=== PATIENT | male | born 1940 | race Caucasian/White ===

== ENCOUNTER → 2016-10-08 | Outpatient (CLI) | payer BC ==
[2016-10-08 12:08] LABS: BASO % 0.2 %; BASO ABS # 0.02 K/uL (0-0.2); COMPLETE YES; EOS % 6.5 %; HEMATOCRIT 39.1 % (42-52); IG% 0.4 %; LYMPH % 17.9 %; LYMPH ABS # 1.52 K/uL (1.2-3.4); MEAN CELL VOLUME 89.1 fL (80-100); MEAN CORPUSCULAR HEMOGLOBIN 29.4 pg (25-34); MEAN PLATELET VOLUME 10.6 fL (7.4-10.4); MONO % 8.1 %; NEUT % 66.9 %; PLATELET COUNT 216 K/uL (130-400); RED BLOOD COUNT 4.39 M/uL (4.7-6.1)
[2016-10-08 12:49] LABS: ALT/SGPT 31 U/L (12-78); AST/SGOT 12 U/L (15-37); BLOOD UREA NITROGEN 24 mg/dl (7-18); BUN/CREATININE RATIO 15.8 (10-20); CALCIUM 9.6 mg/dl (8.5-10.1); CARBON DIOXIDE 28 mmol/L (21-32); CHLORIDE 104 mmol/L (98-107); CHOLESTEROL 132 mg/dl (0-200); GLUCOSE 145 mg/dl (70-99); POTASSIUM 4.2 mmol/L (3.5-5.1); SODIUM 142 mmol/L (136-145); TRIGLYCERIDES 67 mg/dl (0-150); VERY LOW DENSITY LIPOPROT CALC 13 mg/dl
[2016-10-08 12:57] LABS: ALB/GLOB RATIO 1.1 (0.9-2); ALKALINE PHOSPHATASE 54 U/L (45-117); CHOLESTEROL/HDL RATIO 2.2; FERRITIN 296.6 ng/ml (8.0-388.0); HDL CHOLESTEROL 60 mg/dl; LDL CHOLESTEROL CALCULATED 59 mg/dl; TOTAL IRON BINDING CAPACITY 279 mcg/dl (250-450)
--- NOTE | 2016-10-12 09:48 | CODING QUERY MEDICAL NECESSITY ---
SUPPORTING DIAGNOSIS NEEDED Dr. Mejia, A supporting diagnosis is required for the test/procedure performed on this patient in order for us to be reimbursed by the patient's insurance. Please provide a supporting diagnosis for the following test/procedure listed below next to the test name along with your signature. *If there is no additional diagnosis for this patient that would support the following test/procedure please document that below next to the test/procedure. Test(s)/Procedure(s) that require a supporting diagnosis: * ([id number]) B12 VITAMIN LEVEL DIAGNOSIS: * ([id number]) FOLATE LEVEL DIAGNOSIS: DATE OF SERVICE: 10/08/16 Provider Signature: Date: Thank you Francesco Hicks [facility] Information Management Once completed, please kindly fax back to [phone] For questions please call [phone]
== END | disposition home or self-care (01) ==
LOC: C.LAB 10:38
PROVIDERS: ATTEND Internal Medicine
DX: D64.9 Anemia, unspecified (principal)

== ENCOUNTER → 2016-10-12 | Outpatient (CLI) | payer BC ==
[2016-10-12 13:37] LABS: BASO % 0.6 %; BASO ABS # 0.04 K/uL (0-0.2); COMPLETE YES; EOS % 7.6 %; HEMATOCRIT 37.2 % (42-52); IG% 0.3 %; LYMPH % 18.6 %; LYMPH ABS # 1.32 K/uL (1.2-3.4); MEAN CELL VOLUME 88.2 fL (80-100); MEAN CORPUSCULAR HEMOGLOBIN 29.6 pg (25-34); MEAN CORPUSCULAR HGB CONC 33.6 g/dl (32-36); MEAN PLATELET VOLUME 10.3 fL (7.4-10.4); MONO % 9.6 %; NEUT % 63.3 %; PLATELET COUNT 196 K/uL (130-400); RED BLOOD COUNT 4.22 M/uL (4.7-6.1)
[2016-10-12 13:59] LABS: ESTIMATED AVERAGE GLUCOSE 148 mg/dl; HA1C FLAG Normal (Normal)
[2016-10-12 14:01] LABS: ALT/SGPT 29 U/L (12-78); AST/SGOT 16 U/L (15-37); BLOOD UREA NITROGEN 23 mg/dl (7-18); CALCIUM 9.6 mg/dl (8.5-10.1); CARBON DIOXIDE 32 mmol/L (21-32); CHLORIDE 106 mmol/L (98-107); GLUCOSE 167 mg/dl (70-99); POTASSIUM 4.3 mmol/L (3.5-5.1); SODIUM 144 mmol/L (136-145)
[2016-10-12 14:04] LABS: ALB/GLOB RATIO 1.1 (0.9-2); ALKALINE PHOSPHATASE 56 U/L (45-117)
[2016-10-12 14:25] LABS: RATIO 6.9 mcg/mg (0-30.0)
== END | disposition home or self-care (01) ==
LOC: C.LABBC 10:55
PROVIDERS: ATTEND Internal Medicine
DX: E11.9 Type 2 diabetes mellitus without complications (principal)

== ENCOUNTER → 2017-03-28 | Outpatient (CLI) | payer BC ==
[2017-03-28 12:13] LABS: BASO % 0.2 %; BASO ABS # 0.01 K/uL (0-0.2); COMPLETE YES; EOS % 5.3 %; HEMATOCRIT 38.4 % (42-52); IG% 0.3 %; LYMPH % 20.6 %; LYMPH ABS # 1.24 K/uL (1.2-3.4); MEAN CELL VOLUME 89.7 fL (80-100); MEAN CORPUSCULAR HEMOGLOBIN 29.7 pg (25-34); MEAN CORPUSCULAR HGB CONC 33.1 g/dl (32-36); MEAN PLATELET VOLUME 10.1 fL (7.4-10.4); MONO % 9.3 %; NEUT % 64.3 %; PLATELET COUNT 178 K/uL (130-400); RED BLOOD COUNT 4.28 M/uL (4.7-6.1); WHITE BLOOD COUNT 6.03 K/uL (4.8-10.8)
[2017-03-28 12:25] LABS: ESTIMATED AVERAGE GLUCOSE 148 mg/dl; HA1C FLAG Normal (Normal)
[2017-03-28 12:35] LABS: ALT/SGPT 23 U/L (12-78); BLOOD UREA NITROGEN 23 mg/dl (7-18); BUN/CREATININE RATIO 16.4 (10-20); CALCIUM 9.9 mg/dl (8.5-10.1); CARBON DIOXIDE 30 mmol/L (21-32); CHLORIDE 108 mmol/L (98-107); CHOLESTEROL 131 mg/dl (0-200); GLUCOSE 102 mg/dl (70-99); POTASSIUM 4.3 mmol/L (3.5-5.1); SODIUM 142 mmol/L (136-145)
[2017-03-28 12:38] LABS: ALB/GLOB RATIO 1.1 (0.9-2); ALKALINE PHOSPHATASE 49 U/L (45-117); AST/SGOT 14 U/L (15-37); CHOLESTEROL/HDL RATIO 2.3; HDL CHOLESTEROL 56 mg/dl; LDL CHOLESTEROL CALCULATED 66 mg/dl; TRIGLYCERIDES 46 mg/dl (0-150); VERY LOW DENSITY LIPOPROT CALC 9 mg/dl
--- NOTE | 2017-04-03 06:47 | CODING QUERY MEDICAL NECESSITY ---
CQSUPPORTING DIAGNOSIS NEEDED A supporting diagnosis is required for the test/procedure performed on this patient in order for us to be reimbursed by the patient's insurance. Please provide a supporting diagnosis for the following test/procedure listed below next to the test name along with your signature. *If there is no additional diagnosis for this patient that would support the following test/procedure please document that below next to the test/procedure. Test(s)/Procedure(s) that require a supporting diagnosis: ELY 03/28/17 GLYCATED HEMOGLOBIN TEST Provider Signature: Date: Thank you Gaby Stephen Health Information Management Once completed, please kindly fax back to [phone] For questions please call [phone]
== END | disposition home or self-care (01) ==
LOC: C.LAB 10:11
PROVIDERS: ATTEND Internal Medicine
DX: E55.9 Vitamin D deficiency, unspecified (principal); E11.9 Type 2 diabetes mellitus without complications

== ENCOUNTER → 2017-10-08 | Outpatient (CLI) | payer BC ==
[2017-10-08 10:24] LABS: BASO % 0.3 %; BASO ABS # 0.02 K/uL (0-0.2); EOS % 4.8 %; EOS ABS # 0.38 K/uL (0-0.5); HEMATOCRIT 39.6 % (42-52); HEMOGLOBIN 13.4 g/dL (14.0-18.0); IG# 0.01 K/uL (0.00-0.02); LYMPH % 16.1 %; LYMPH ABS # 1.26 K/uL (1.2-3.4); MEAN CELL VOLUME 89.2 fL (80-100); MEAN CORPUSCULAR HEMOGLOBIN 30.2 pg (25-34); MEAN CORPUSCULAR HGB CONC 33.8 g/dl (32-36); MEAN PLATELET VOLUME 10.2 fL (7.4-10.4); MONO % 8.5 %; MONO ABS # 0.67 K/uL (0.11-0.59); NEUT % 70.2 %; PLATELET COUNT 194 K/uL (130-400); RED CELL DISTRIBUTION WIDTH CV 12.7 % (11.5-14.5); RED CELL DISTRIBUTION WIDTH SD 41.2 fL (36.4-46.3); WHITE BLOOD COUNT 7.84 K/uL (4.8-10.8)
[2017-10-08 10:56] LABS: ALBUMIN 3.8 gm/dl (3.4-5.0); ALT/SGPT 18 U/L (12-78); AST/SGOT 13 U/L (15-37); BLOOD UREA NITROGEN 29 mg/dl (7-18); CALCIUM 9.6 mg/dl (8.5-10.1); CARBON DIOXIDE 28 mmol/L (21-32); CHOLESTEROL 124 mg/dl (0-200); CREATININE 1.37 mg/dl (0.60-1.40); GLUCOSE 115 mg/dl (70-99); POTASSIUM 4.3 mmol/L (3.5-5.1); SODIUM 139 mmol/L (136-145)
[2017-10-08 11:08] LABS: ALKALINE PHOSPHATASE 55 U/L (45-117); LDL CHOLESTEROL CALCULATED 55 mg/dl; TOTAL PROTEIN 7.6 gm/dl (6.4-8.2)
[2017-10-08 11:45] LABS: HEMOGLOBIN A1C 6.4 % (4.5-5.6)
== END | disposition home or self-care (01) ==
LOC: C.LAB 09:27
PROVIDERS: ATTEND Internal Medicine
DX: E11.29 Type 2 diabetes mellitus with other diabetic kidney complication (principal)

== ENCOUNTER 2019-03-18 05:35 | Inpatient (IN) ==
--- NOTE | 2019-03-04 16:30 | PAT Medication Instructions ---
Medication Instructions Date of Service March 04, 2019 Home Medications glimepiride 4 mg PO QAM metformin 500 mg PO QAM simvastatin 20 mg PO QAM sitagliptin [Januvia] 100 mg PO QAM aspirin [Aspirin Low Dose] 81 mg PO QAM cholecalciferol (vitamin D3) [Vitamin D3] 1,000 unit PO QAM ASK your surgeon for instructions aspirin [Aspirin Low Dose] 81 mg PO QAM DO NOT take the morning of surgery glimepiride 4 mg PO QAM metformin 500 mg PO QAM sitagliptin [Januvia] 100 mg PO QAM cholecalciferol (vitamin D3) [Vitamin D3] 1,000 unit PO QAM Take morning of surgery With a small sip of water, OTHERWISE NOTHING TO EAT OR DRINK AFTER MIDNIGHT: simvastatin 20 mg PO QAM Other Notes If you have any questions please call us at [phone] or [phone] or [phone] or [phone]
--- NOTE | 2019-03-05 10:42 | Anesthesiology Consultation ---
Date of Service March 05, 2019 Assessment & Plan (1) Encounter for pre-operative examination: - No previous anesthesia records. - Possible difficult intubation due to decreased ROM of neck. - EKG sent to PCP for review for possible new findings. Dr. Mejia ordered a stress test which was normal. Per provider note dated 03/16 in [facility], patient is "okay for surgery". Chart Review Chart Review: Acceptable Risk for Surgery and Patient seen in Pre Admission Testing Consults Requested none Teaching & Discussion Pre-Anesthesia Teaching/Discussion Notes: Instructed NPO after midnight before surgery, except medications with 15 cc of water. Medication instructions provided according to the PAT guidelines. History Surgery Operation Date: 03/18/19 07:30 Proposed Procedures p Left Carotid Endarterectomy - Panchito Cornejo MD Height/Weight Height: 5 ft 7 in Weight: 66.5 kg Allergies Allergy/AdvReac Type Severity Reaction Status Date / Time No Known Allergies Allergy Verified 03/02/19 11:44 Medications Home Medications Medication Instructions Recorded Confirmed Last Taken glimepiride 4 mg PO QAM 12/25/18 03/02/19 Unknown simvastatin 20 mg PO QAM 12/25/18 03/02/19 Unknown sitagliptin [Januvia] 100 mg PO QAM 12/25/18 03/02/19 Unknown aspirin [Aspirin Low Dose] 81 mg PO QAM 03/02/19 03/02/19 Unknown cholecalciferol (vitamin D3) 1,000 unit PO QAM 03/02/19 03/02/19 Unknown [Vitamin D3] metformin 500 mg tablet See Rx Instructions .ROUTE 03/11/19 Unknown .COMPLEX #90 tablet Past Medical History Medical History Arthritis (Acute) Carotid artery narrowing (Acute) Diabetes mellitus (Acute) History of skin cancer (Acute) NOSE AND EAR - LEFT Hyperlipidemia (Acute) Vitamin D deficiency (Acute) Nodule of left lung Exercise / Class Metabolic Activity II 4-5 Yardwork/Stairs/Walk up hill (Able to climb FOS. Takes care of stein bushes and yard. Denies CP or SOB. ) Past Family History Family History Father Diabetes Brother Diabetes Sister Diabetes Past Surgical History Surgical History Hx of bilateral cataract extraction (Acute) Past Anesthesia History No Hx of Anesthesia Complications and No Family Hx of Anesthesia Complications History of PONV No Hx of PONV and No Hx of Motion Sickness Social History Smoking Status: Former smoker Do You Dip or Chew Tobacco: No Smoking End Date: 20 Hx Alcohol Use: Yes Alcohol type: beer alcohol intake frequency: a few times a week Hx Substance Use: No Review of Systems Patient denies chest pain, shortness of breath, dyspnea on exertion, reflux, cough, wheezing, palpitations. +Joint Pain (Neck) Physical Exam Vital Signs BP: 142/62 P: 53 R: 18 T: 97.5 SPO2: 98% on RA ENMT Mouth: + dentures (Full upper plate) Thyromental Distance: < 3.5 Finger Breadths (3) Mallampati Class: II Neck normal visual inspection, trachea midline and + limited neck extension Respiratory normal respiratory effort Auscultation: lungs clear to auscultation bilaterally Cardiovascular Rate/Rhythm: regular rhythm and + bradycardic Heart Sounds: + murmur (3/6 systolic) Vessels: + carotid bruit (bilateral) Neurologic moves all extremities Psychiatric Orientation: alert and oriented x 3 Testing Laboratory Results 03/05/19 10:58 03/05/19 10:58 PT 11.1 Seconds (9.0-12.0) 03/05/19 10:58 INR 1.1 (0.9-1.1) 03/05/19 10:58 APTT 32.2 Seconds (21.0-31.0) H 03/05/19 10:58 Blood Type A Negative 03/05/19 10:58 Antibody Screen NEGATIVE 03/05/19 10:58 Laboratory Tests 10/14/18 09:22 Hemoglobin A1c 6.6 H Electrocardiogram Date: 03/05/19 Sinus bradycardia with 1st degree AV block @ 51bpm Left anterior fascicular block Minimal voltage criteria for LVH, may be normal variant Chest X-Ray Date: 03/05/19 Findings: + NAD FINDINGS: There is no pneumothorax or pleural effusion. There is no consolid ation or evidence for pulmonary edema. A small metallic density within the anterior left chest wall within the subcutaneous tissues is noted. Cardiac size is normal. Mediastinal contours are normal. IMPRESSION: No acute cardiopulmonary findings. Stress Test Date: 03/13/19 Resting EF: 55-60% Normal stress echocardiogram at 8 METS and a peak heart rate of 92% predicted maximum. No exercise-induced chest pain. No EKG changes. Baseline echocardiogram notes normal left ventricular systolic function without wall motion abnormalities. Other Testing CT angio neck with con 12/25/18 FINDINGS: Extensive mixed plaque formation of the thoracic aortic arch with suggestion of ulcerative plaque about the aortic isthmus. Calcified plaque at the origin of the left subclavian artery results in approximately 50% stenosis. The right subclavian artery appears patent. Extensive mixed plaque formation is also noted at the origin of the innominate and left common carotid arteries without high-grade stenosis. Moderate mixed plaque formation is noted about the distal portions of the bilateral common carotid arteries without high-grade stenosis. [id number] mixed plaque formation of the right carotid bulb causes less than 50% luminal narrowing. Severe mixed plaque formation of the left carotid bulb results in 90% luminal narrowing of the proximal left ICA (image 248 series 4). Moderate calcified plaque about the petrous, cavernous and supraclinoid segments of the internal carotid arteries without definite high-grade stenosis. Calcified plaque is noted at the origin of the bilateral vertebral arteries without high-grade stenosis. The right vertebral artery is dominant. Mild luminal narrowing about the V2 segment right vertebral artery at the level of C5-C6 secondary to uncovertebral spurring and facet arthropathy. The basilar artery appears normal and is patent. Moderate emphysema. No pneumothorax. Indeterminate 4 x 3 mm solid nodule of the apical posterior segment left upper lobe. No adenopathy. Soft tissues are unrem arkable. Mastoid air cells are clear. Mild mucosal thickening of the paranasal sinuses. Multilevel degenerative changes of the spine. IMPRESSION: 1. Severe mixed plaque formation of the left carotid bulb and proximal left ICA results in 90% luminal narrowing of the proximal left ICA. 2. Moderate mixed plaque formation of the right carotid bulb and proximal right ICA results in less than 50% luminal narrowing. 3. No aneurysm, dissection or proximal branch occlusion. 4. 4 x 3 mm solid nodule of the apical posterior segment left upper lobe. Follow-up guidelines provided below. 5. Emphysema.
--- NOTE | 2019-03-05 11:34 | XRay Report ---
XR chest Pre-admission PA/Lat CLINICAL HISTORY: Preoperative evaluation. COMPARISON STUDY: No previous studies for comparison. FINDINGS: There is no pneumothorax or pleural effusion. There is no consolidation or evidence for pul monary edema. A small metallic density within the anterior left chest wall within the subcutaneous ti ssues is noted. Cardiac size is normal. Mediastinal contours are normal. IMPRESSION: No acute cardiopulmonary findings. Electronically signed by: Melvin Martinez M.D. 03/05/2019 11:33 AM
[2019-03-05 12:39] LABS: Basophils # (auto) 0.02 K/uL (0-0.2); Basophils % (auto) 0.3 %; Eosinophils # (auto) 0.32 K/uL (0-0.5); Eosinophils % (auto) 4.6 %; Hemoglobin 12.8 g/dL (14.0-18.0); Immature Granulocytes # (auto) 0.02 K/uL (0.00-0.02); Immature Granulocytes % (auto) 0.3 %; Lymphocytes # (auto) 1.32 K/uL (1.2-3.4); Lymphocytes % (auto) 18.8 %; Mean Corpuscular Hgb Conc 32.8 g/dL (32-36); Mean Corpuscular Volume 90.7 fL (80-100); Mean Platelet Volume 10.4 fL (7.4-10.4); Monocytes # (auto) 0.71 K/uL (0.11-0.59); Monocytes % (auto) 10.1 %; Neutrophils # (auto) 4.64 K/uL (1.4-6.5); Neutrophils % (auto) 65.9 %; Platelet Count 178 K/uL (130-400); RDW Standard Deviation 42.7 fL (36.4-46.3); White Blood Count 7.03 K/uL (4.8-10.8)
[2019-03-05 12:48] LABS: INR 1.1 (0.9-1.1); Partial Thromboplastin Ratio 1.2; Partial Thromboplastin Time 32.2 Seconds (21.0-31.0); Prothrombin Time 11.1 Seconds (9.0-12.0)
[2019-03-05 17:22] LABS: BUN Creatinine Ratio 16.6 (10-20); Calcium 9.5 mg/dl (8.5-10.1); Creatinine Clr Calc Pharmacy 31.1 ml/min; Est GFR (African American) 41.1; Est GFR (Non-African American) 35.5; Potassium 4.3 mmol/L (3.5-5.1)
[2019-03-18] MEDS ORDERED: CEFAZOLIN 1000MG 1,000 MG/7.5 ML SYR IV SCH (06:00)
[2019-03-18] MEDS ORDERED: SODIUM CHLORIDE 0.9% 1000ML IV SCH (06:00)
[2019-03-18] MEDS ORDERED: LR 15ML/HR IV SCH (06:00)
--- NOTE | 2019-03-18 06:24 | History & Physical Report ---
Date of Service March 18, 2019 Assessment & Plan (1) Stenosis of left internal carotid artery: Patient admitted for a left CEA. I have discussed the risks options and benefits of the procedure with the patient. The patient understands the risks options and benefits and agrees to the procedure. History of Present Illness Primary Care Provider: Tony Mejia MD Mr Traore was seen in November due to left internal carotid artery stenosis noted on an ultrasound. The ultrasound was initially performed due to his primary provider auscultating a left carotid bruit which prompted the order for ultrasound. The patient denies any symptoms, specifically of cerebrovascular insufficiency or amaurosis. He denies any unilateral extremity weakness, numbness or tingling, difficulty speaking or swallowing, facial droop, unilateral headaches, lightheadedness or other concerns. He denies any chest pain, shortness of breath, chest pain with activity. His CTA neck demonstrates over 90% stenosis of his left internal carotid artery. Of note, it also demonstrates a 4 x 3 mm left upper lobe lung nodule and also demonstrates some significant plaque formation in the thoracic aortic arch and a possible ulcerative plaque. Allergies Allergy/AdvReac Type Severity Reaction Status Date / Time No Known Allergies Allergy Verified 03/18/19 06:06 Home Medications Home Medications Medication Instructions Recorded Confirmed Type glimepiride 4 mg PO QAM 12/25/18 03/18/19 History simvastatin 20 mg PO QAM 12/25/18 03/18/19 History sitagliptin [Januvia] 100 mg PO QAM 12/25/18 03/18/19 History aspirin [Aspirin Low Dose] 81 mg PO QAM 03/02/19 03/18/19 History cholecalciferol (vitamin D3) 1,000 unit PO QAM 03/02/19 03/18/19 History [Vitamin D3] metformin 500 mg tablet See Rx Instructions .ROUTE 03/11/19 03/18/19 Rx .COMPLEX #90 tablet Past Med/Surg History Medical History Arthritis (Acute) Carotid artery narrowing (Acute) Diabetes mellitus (Acute) History of skin cancer (Acute) NOSE AND EAR - LEFT Hyperlipidemia (Acute) Vitamin D deficiency (Acute) Nodule of left lung Surgical History Hx of bilateral cataract extraction (Acute) Family History Father Diabetes Brother Diabetes Sister Diabetes Social History Preferred Language: Macedonian Communication Ability: Effective Beliefs That Will Affect Care: None Current Living Situation: Spouse Feels Safe at Home: Yes Safety Concerns: Feels Safe At This Time Smoking Status: Former smoker Do You Dip or Chew Tobacco: No Smoking End Date: 20 Second Hand Exposure: No Hx Alcohol Use: Yes Alcohol type: beer Hx Substance Use: No Review of Systems All systems reviewed & are unremarkable except as noted in HPI & below Physical Exam Physical Exam: The patient was awake, in general, appears awake, alert, oriented, follows command, does not appear to be in distress. Heart is regular with an audible systolic bruit, reverberating up both carotids. Lungs are clear to auscultation. Patient has palpable radial pulses bilaterally. Is able to hear the bruit in both carotids, which is likely his cardiac murmur. Neurologically, patient has no focal neuro deficits. 5/5 strength in both upper and lower extremities. Cranial nerves 2 through 12 intact
[2019-03-18] MEDS ORDERED: ROCURONIUM BROMIDE 10 MG/ML 5 ML VIAL ONE (06:29)
[2019-03-18] MEDS ORDERED: LIDOCAINE HCL 2% 2 ML VIAL/AMP(20MG/ML) INFIL ONE ×3 (06:29→10:42)
[2019-03-18] MEDS ORDERED: ONDANSETRON INJ 2 MG/ML 2 ML VIAL ONE (06:29)
[2019-03-18] MEDS ORDERED: fentaNYL citrate 100 MCG/2 ML VIAL ONE ×2 (06:30→08:04)
[2019-03-18 06:40] LABS: BUN Creatinine Ratio 20.7 (10-20); Calcium 9.4 mg/dl (8.5-10.1); Creatinine Clr Calc Pharmacy 36.7 ml/min; Est GFR (African American) 50.2; Est GFR (Non-African American) 43.3; Potassium 4.2 mmol/L (3.5-5.1)
[2019-03-18] MEDS ORDERED: HEPARIN (PORCINE) 1000 UNIT/ML 10 ML (CATH LAB USE ONLY) ONE (06:53)
[2019-03-18] MEDS ORDERED: ATROPINE SULFATE 0.1 MG/ML 10ML SYR IV PRN (06:53)
[2019-03-18] MEDS ORDERED: CEFAZOLIN 250 MG/ML 1 GM VIAL ONE (06:53)
[2019-03-18] MEDS ORDERED: ePHEDrine sulfate 50 MG/ML AMP IV PRN (06:53)
[2019-03-18] MEDS ORDERED: fentaNYL citrate 100 MCG/2 ML VIAL IV PRN (06:53)
[2019-03-18] MEDS ORDERED: ONDANSETRON INJ 2 MG/ML 2 ML VIAL IV PRN (06:53)
[2019-03-18] MEDS ORDERED: BUPIVACAINE/EPINEPHRINE 0.5% MPF 1:200,000 30 ML VIAL ONE (06:53)
[2019-03-18] MEDS ORDERED: LIDOCAINE HCL 1% 20 ML VIAL ONE (06:53)
[2019-03-18] MEDS ORDERED: THROMBIN FOR SOLN 20000 UNIT KIT ONE (06:54)
[2019-03-18] MEDS ORDERED: GELATIN SPONGE SZ 100 ONE (06:54)
--- NOTE | 2019-03-18 07:13 | History & Physical Bridge Note ---
Date of Service March 18, 2019 History & Physical Bridge Note I have examined the patient, reviewed the History & Physical and in the interval since the performance of the History & Physical I have noted the following changes of clinical significance: no changes noted
[2019-03-18] MEDS ORDERED: PHENYLEPHRINE HCL 10 MG/ML VIAL ONE (08:31)
[2019-03-18] MEDS ORDERED: HEPARIN SOD (PORCINE) 1000 UNIT/ML 10 ML VIAL ONE (08:31)
[2019-03-18] MEDS ORDERED: SUGAMMADEX SODIUM 200 MG/2 ML VIAL IV ONE (08:41)
--- NOTE | 2019-03-18 10:34 | Post Operative Brief Note ---
Immediate Post Op Note v1 Date of Surgery March 18, 2019 Pre & Post Diagnosis Operation Date: 03/18/19 07:30 Pre-Op Diagnosis: Stenosis of left internal carotid artery Post-Op Diagnosis: Stenosis of left internal carotid artery Procedure Operation Date: 03/18/19 07:30 Actual Procedures p Left Carotid Endarterectomy(Left) - Panchito Cornejo MD Surgeon Panchito Cornejo MD Malt House Kiln Operator MD Sachi Estimated Blood Loss 120 Findings Consistent with Post-Op Diagnosis Anesthesia Type General Complications none Disposition Accompanied Patient To Recovery: No Disposition: Recovery Room
[2019-03-18] MEDS ORDERED: ePHEDrine sulfate 50 MG/ML SYR ONE (10:42)
--- NOTE | 2019-03-18 10:51 | Operative Report ---
Post Operative Report Pre & Post Diagnosis Operation Date: 03/18/19 07:30 Pre-Op Diagnosis: Stenosis of left internal carotid artery Post-Op Diagnosis: Stenosis of left internal carotid artery Procedure Operation Date: 03/18/19 07:30 Actual Procedures p Left Carotid Endarterectomy(Left) - Panchito Cornejo MD Surgeon Dr. Panchito Cornejo Wet Chemistry Analyst MD Sachi Estimated Blood Loss 120 Findings Consistent with Post-Op Diagnosis Fluids 1000 mL Specimens None Drains None Anesthesia Type General Complications none Disposition Accompanied Patient To Recovery: No Disposition: Surgical ICU Indications 78-year-old male who was found to have asymptomatic left internal carotid artery stenosis of 90%. I have discussed the risks options and benefits of the procedure with the patient. The patient understands the risks options and benefits and agrees to the procedure. Description of Procedure The patient was taken to the operating room and placed in supine position. A timeout procedure was performed correctly identifying the patient by his full name and date of as well as confirming the surgery to be performed in the laterality. Preoperative antibiotics were given prior to surgical start time. After general anesthesia was accomplished the left-side of the neck was prepped and draped in a sterile manner. A longitudinal neck incision was then made coursing along the medial border of the sternocleidomastoid muscle. The incision was taken down through the platysmal layer. The facial vein was identified, ligated, and divided. The common carotid artery was then seen. It was dissected free down to the omohyoid muscle. The dissection was carried upward until the external carotid artery and superior thyroid artery was seen. The superior thyroid artery was slung with a 2-0 silk suture. The external carotid was slung with a red rubber vessel loop. Next the dissection was carried up along the internal carotid artery. This was carried upward to beyond the area of narrowing. The hypoglossal nerve was seen and preserved. The patient was heparinized. After adequate heparinization was accomplished, the internal, external, and common carotid arteries were clamped. A longitudinal arteriotomy was started on the common carotid artery and extended upward along the internal carotid artery to a point beyond the area of narrowing. There was calcified plaque of the internal carotid artery origin causing approximately 85-90% narrowing. A Doppler shunt was then placed in the internal, followed by the common carotid artery and held in place with Roshan clamps. There was good back bleeding seen from the internal carotid artery. The endarterectomy was then started in the appropriate plane on the common carotid artery. This was carried upward and the external carotid was everted and endarterectomized. The endarterectomy was then carried up along the internal carotid artery till a nice feathering breakoff point was accomplished beyond the end of the plaque. The endarterectomy was then carried down further on the common carotid artery. At end of the arteriotomy, the plaque was then transected. Under loop magnification, all loose debris and flaps were removed. There is no distal flap seen at the end of the endarterectomy site. The arteriotomy then closed using an Accuseal patch and a running CV 6 [place]-Stephen suture. This was done in the usual vascular fashion. Prior to completing the closure, the doppler shunt was removed and the internal and common carotid arteries were reclamped. Backbleeding and forward bleeding was allowed to occur. The flow surface was irrigated with heparinized saline. The final few sutures were then placed and securely tied. Clamps were then removed off the external and common carotid arteries. The clamp was then removed the internal carotid artery. Good distal flow was seen. Adequate hemostasis was seen of the patch. The wound was inspected and adequate hemostasis was obtained. The wound was irrigated with antibiotic solution. It was then closed with a running 3-0 Vicryl suture for the platysmal layer and a 4-0 subcuticular Vicryl suture for the skin edges. Dermabond was used for dressing. The patient left the operating room in satisfactory condition and tolerated the procedure well. Dr. Panchito Cornejo was present for the entire case I attest to the content of the Intraoperative Record and any orders documented therein. Any exceptions are noted below.
--- NOTE | 2019-03-18 11:36 | Anesthesiology Progress Note ---
Date of Service March 18, 2019 Anesthesia Post Procedure Vital Signs Vital Signs: Temp Pulse Pulse Resp BP BP Pulse Ox 03/18/19 11:25 69 16 133/63 100 03/18/19 11:15 72 16 106/52 L 100 03/18/19 11:08 97.0 F L 73 16 96/52 L 97 03/18/19 06:09 97.5 F L 60 18 200/87 H 100 Transfer of Care Handoff Completed per policy Notes Mental Status: alert / awake / arousable and participated in evaluation Patient Amnestic to Procedure: Yes Nausea / Vomiting: adequately controlled Pain: adequately controlled Airway Patency, RR, SpO2: stable & adequate BP & HR: stable & adequate Hydration State: stable & adequate Anesthetic Complications: no major complications apparent and Pt Satisfied with anesthetic care
[2019-03-18] MEDS ORDERED: MoRPHine SULFATE 4 MG/ML 1 ML CARP\\VIAL IV PRN (12:48)
[2019-03-18] MEDS ORDERED: OXYCODONE/ACETAMINOPHEN 5mg/325mg TAB PO PRN (12:48)
[2019-03-18] MEDS ORDERED: PHARMACY GLYCEMIC MGMT CONSULT PRN (13:14)
[2019-03-18] MEDS ORDERED: CARBOHYDRATES FOR HYPOGLYCEMIA PO PRN (13:15)
[2019-03-18] MEDS ORDERED: GLUCAGON FOR INJ 1 MG VIAL IM PRN (13:15)
[2019-03-18] MEDS ORDERED: DEXTROSE 50% 50 ML SYRINGE IV PRN (13:15)
[2019-03-18] MEDS ORDERED: GLUCOSE 10 TABS/TUBE PO PRN (13:15)
[2019-03-18] MEDS ORDERED: GLUCOSE 40% GEL 15 GM TUBE PO PRN (13:15)
--- NOTE | 2019-03-18 13:19 | Pharmacy Report ---
Glycemic Control Consultation - Date of Service March 18, 2019 - Scope Scope: Glycemic Pharmacist consulted by Dr Cornejo on 03/18/19 for glycemic control and to write orders per [facility] inpatient glycemic control protocol - Objective Weight: 66.088 kg Accuchecks BSG (last 24hrs): 03/18/19 03/18/19 03/18/19 06:01 06:18 11:12 Glucose 115 H POC Glucose 106 H 155 H 03/18/19 12:46 Glucose POC Glucose 172 H Laboratory Data (last 24hrs): 03/18/19 06:01 Potassium 4.2 Carbon Dioxide 30 Anion Gap 5.0 Creatinine 1.50 H Est Cr Clr Drug Dosing 36.7 - Recent Pertinent Medications Outpatient Anti-diabetic Regimen: * Januvia 100 mg daily; Amaryl 4 mg PO daily; metformin 500 mg PO BID * A1c = 6.6 % 10/14/18 Risk Factors for Insulin Resistance: * IVF: D51/2NS @ 125 cc/hr * Recent Surgery: POD 0 for endarterectomy * Diet: clear liquid - Assessment & Plan Assessment & Plan: ASSESSMENT: * Mr Traore is an 78 y/o M with a PMH of well controlled T2DM maintained on three oral agents. Patient underwent endarterectomy today; drinking coffee currently. Ordered clear liquid diet. Dextrose in fluids at 125 cc/hr. * For Lantus, will order 0.2 units/kg dose of Lantus. While patient's HbA1C from September was well controlled, he is maintained on three oral agents. Blood sugar at lunch was 172 mg/dL indicating increasing blood sugars. * For Novolog, will utilize weight-based stress of 2. * Pt is maintained on oral antidiabetic agents as an outpatient * Oral agents are not recommended for inpatient use d/t drug interactions, changing PO intake, and difficulty titrating for acute hyper/hypoglycemia. ADA recommends re-initiating outpatient oral agents 1-2 days prior to discharge if/when appropriate if they were held on admission. * Will hold oral agents for admission and utilize SQ basal bolus insulin regimen which is the recommended regimen for inpatient glycemic control. * Will initiate weight based insulin dosing for insulin kaylin patient and titrate based on BSG trends. * Utilize goal range of 140-180 mg/dL due to ICU status. PLAN FOR INPATIENT GLYCEMIC CONTROL: * Holding outpatient oral diabetes medications * Basal insulin * Lantus 15 units SQ x1 * Bolus insulin * NovoLog per scale ACHS or Q6hrs while NPO * Goal Range: Low 140 mg/dL - High 180 mg/dL * Correction Factor: 30 mg/dL/unit * Nutritional / Prandial insulin per carb ratio of 1 unit per 10 grams CHO consumed * Please note that the plan above was derived based on current level of insulin resistance and hospital stress. These recommendations are appropriate for inpatient admission only. Plan of care upon discharge will need to be reassessed to avoid potential outpatient hypo/hyperglycemia. Thank you.
[2019-03-18] MEDS ORDERED: INSULIN GLARGINE SOLOSTAR 100 UNITS/ML 3 ML PEN SC ONE ×2 (14:00→21:00)
[2019-03-18] MEDS: D5W AND 1/2NSS 1,000 ML IV SCH ×2 (14:19→21:11)
--- NOTE | 2019-03-18 14:48 | Critical Care Consultation ---
Date of Consultation March 18, 2019 History of Present Illness Attending Physician: Panchito Cornejo MD Allergies Allergy/AdvReac Type Severity Reaction Status Date / Time No Known Allergies Allergy Verified 03/18/19 06:06 Home Medications Home Medications Medication Instructions Recorded Confirmed Type glimepiride 4 mg PO QAM 12/25/18 03/18/19 History simvastatin 20 mg PO QAM 12/25/18 03/18/19 History sitagliptin [Januvia] 100 mg PO QAM 12/25/18 03/18/19 History aspirin [Aspirin Low Dose] 81 mg PO QAM 03/02/19 03/18/19 History cholecalciferol (vitamin D3) 1,000 unit PO QAM 03/02/19 03/18/19 History [Vitamin D3] metformin 500 mg tablet See Rx Instructions .ROUTE 03/11/19 03/18/19 Rx .COMPLEX #90 tablet Patient History Medical History Arthritis (Acute) Carotid artery narrowing (Acute) Diabetes mellitus (Acute) History of skin cancer (Acute) NOSE AND EAR - LEFT Hyperlipidemia (Acute) Vitamin D deficiency (Acute) Nodule of left lung Surgical History Hx of bilateral cataract extraction (Acute) Family History Father Diabetes Brother Diabetes Sister Diabetes Social History Preferred Language: Azeri Communication Ability: Effective Beliefs That Will Affect Care: None Current Living Situation: Spouse Feels Safe at Home: Yes Safety Concerns: Feels Safe At This Time Smoking Status: Former smoker Do You Dip or Chew Tobacco: No Smoking End Date: Second Hand Exposure: No Hx Alcohol Use: Yes Alcohol type: beer Hx Substance Use: No Results & Data Vital Signs (Past 12 Hours) Vital Signs Temp Pulse Pulse Pulse Resp BP BP 03/18/19 14:30 71 12 113/53 L 03/18/19 14:29 71 12 95/53 L 03/18/19 14:14 74 12 106/41 L 03/18/19 14:07 73 9 L 98/38 L 03/18/19 13:55 71 22 82/46 L 03/18/19 13:53 71 16 80/47 L 03/18/19 13:00 65 19 103/68 03/18/19 12:46 70 19 90/56 L 03/18/19 12:30 70 16 103/58 L 03/18/19 12:19 36.6 C 68 11 L 105/63 03/18/19 11:35 36.1 C L 70 16 118/65 03/18/19 11:25 69 16 133/63 03/18/19 11:15 72 16 106/52 L 03/18/19 11:08 36.1 C L 73 16 96/52 L 03/18/19 06:09 36.4 C L 60 18 BP Pulse Ox 03/18/19 14:30 98 03/18/19 14:29 98 03/18/19 14:14 98 03/18/19 14:07 100 03/18/19 13:55 97 03/18/19 13:53 98 03/18/19 13:00 100 03/18/19 12:46 96 03/18/19 12:30 100 03/18/19 12:19 100 03/18/19 11:35 100 03/18/19 11:25 100 03/18/19 11:15 100 03/18/19 11:08 97 03/18/19 06:09 200/87 H 100 PG Care Time/CCT Total # of Minutes Spent Total Time Spent with Patient: Total time spent is greater than 50% in coordination of care (as documented) at patient's floor/unit and/or counseling patient:
[2019-03-18] MEDS ORDERED: CEFAZOLIN 1000MG 1,000 MG/7.5 ML SYR IV ONE (15:17)
[2019-03-18] MEDS: INSULIN ASPART 100 UNITS/ML 3 ML PEN SC SCH ×2 (17:06→20:36)
--- NOTE | 2019-03-18 19:35 | Critical Care Consultation ---
Date of Consultation March 18, 2019 Assessment & Plan (1) Admitted to intensive care unit: Reason Critically Ill: 78-year-old male status post LEFT-sided CEA requiring close hemodynamic monitoring status post surgical intervention. NEURO - * CAM ICU: NEGATIVE * Patient with slight LEFT-sided corner mouth droop without other concerning finding. Likely related to operative manipulation versus persistent nerves blockade. No other focal neurologic deficits of concern. Sensation intact throughout. * Monitor closely for changes in mental status or focal neurological deficits status post CEA. CARDIAC/VASCULAR - * Hypertension/HLD: * Continue home Rx. * EKG: (03/05/2019) Sinus Donnie@51bpm. No ST/T-wave changes. QTc 407ms. * Monitor on telemetry. RESPIRATORY - * No h/o pulmonary disease. * Monitor pulse oximetry closely. * Supplemental O2 PRN. GI/NUTRITION - * Progress diet as tolerated. * DM Diet RENAL/LYTES - * Apparent CKD per labs. * Monitor BMP * IVF: D5W&1/2NSS@125mL/hr - * Postoperative urinary retention - responded to straight cath. ENDO - * DMII * BSGs per unit protocol. ISS --> gtt per unit policy. HEME - * Monitor H&H s/p intervention. ID - * No concerns of infection at this time. LINES/IV ACCESS - * PIVs x2 DVT PROPHYLAXIS - * Hold s/p CEA. * SCDs I have personally spent 35 minutes of critical care time in the direct management of this patient. This is a life/limb threatening event. This includes time spent evaluating patient, direct bedside care, chart review, placing orders, interpretation of diagnostic studies, discussion with consultants, patient, and family members, as well as other required patient management activities. This time is exclusive of all separately billable procedures, and teaching time and separate from and in addition to any other critical care service time. Thank you for allowing us to participate in the care of this patient. Please refer to my attending physician's documentation for any further recommendations. (2) Status post carotid endarterectomy: (3) Stenosis of left internal carotid artery: (4) Encounter for pre-operative examination: (5) HTN (hypertension): (6) Dyslipidemia: (7) DMII (diabetes mellitus, type 2): History of Present Illness Attending Physician: Panchito Cornejo MD History of Present Illness Patient is an 78-year-old male with a significant past medical history of hypertension, hyperlipidemia, and diabetes who underwent elective LEFT-sided CEA by Dr. stafford earlier this evening. Surgery without event. Minimal blood loss noted. Patient without complaints at this time. On evaluation in the ICU, the patient is awake, alert, and oriented. He reports that he feels very well. He is asking when he can go home. He denies any specific complaints of headaches, dizziness, lightheadedness, slurred speech, facial droop, unilateral weakness/numbness, chest pain, palpitations or generalized weakness. He denies any pain at this time. Allergies Allergy/AdvReac Type Severity Reaction Status Date / Time No Known Allergies Allergy Verified 03/18/19 06:06 Home Medications Home Medications Medication Instructions Recorded Confirmed Type Januvia 100 mg PO QAM 12/25/18 03/18/19 History glimepiride 4 mg PO QAM 12/25/18 03/18/19 History simvastatin 20 mg PO QAM 12/25/18 03/18/19 History aspirin [Aspirin Low Dose] 81 mg PO QAM 03/02/19 03/18/19 History cholecalciferol (vitamin D3) 1,000 unit PO QAM 03/02/19 03/18/19 History [Vitamin D3] metformin 500 mg tablet See Rx Instructions .ROUTE 03/11/19 03/18/19 Rx .COMPLEX #90 tablet oxycodone-acetaminophen [Percocet] 1 tab PO Q4H PRN #30 tab 03/20/19 Rx Patient History Medical History Arthritis (Acute) Carotid artery narrowing (Acute) Diabetes mellitus (Acute) History of skin cancer (Acute) NOSE AND EAR - LEFT Hyperlipidemia (Acute) Vitamin D deficiency (Acute) Nodule of left lung Surgical History Hx of bilateral cataract extraction (Acute) Family History Father Diabetes Brother Diabetes Sister Diabetes Social History Preferred Language: Ethiopian Communication Ability: Effective Beliefs That Will Affect Care: None Current Living Situation: Spouse Feels Safe at Home: Yes Safety Concerns: Feels Safe At This Time Smoking Status: Former smoker Do You Dip or Chew Tobacco: No ; Smoking End Date : 20 ; Second Hand Exposure: No ; Hx Alcohol Use: Yes Alcohol type: beer Hx Substance Use: No Review of Systems Review of Systems: A complete 10 point review of systems was reviewed with the patient with pertinent positives and negatives as per history of present illness. All else were negative. Physical Exam Physical Exam: VITAL SIGNS - Vital signs and nursing notes were reviewed. GENERAL - 78-year-old male appearing his stated age who is in no acute distress. Communicates well with provider and answers questions appropriately. SKIN - Well closed incision to the LEFT sided neck without edema, ecchymosis, or erythema. HEAD - NC/AT. EYES - PERRL with EOMI bilaterally. Sclera anicteric. Palpebral conjunctiva pink and moist with no injection noted. EARS - No deformities of external structures noted on gross examination bilaterally. NOSE - Midline and without cyanosis. No epistaxis or purulent drainage noted. MOUTH/OROPHARYNX - Without perioral cyanosis. Buccal mucosa pink and moist and without leukoplakia. Tongue midline with equal elevation of palate bilaterally. No tonsillar hypertrophy, erythema, or exudates noted. NECK - Post op as above. Neck with FROM. Supple to palpation. No nuchal rigidity. LUNGS - Chest wall symmetric without accessory muscle use, intercostals retractions, or central cyanosis. Normal vesicular breath sounds CTA B/L. No wheezes, rales, or rhonchi appreciated. CARDIAC - RRR with S1/S2. No murmur, rubs, or gallops appreciated. ABDOMEN - Abdominal contour flat without pulsations or visible masses. BS normoactive all four quadrants. No tenderness, palpable masses, hepatosplenomegaly, or ascites noted. EXTREMITIES - No clubbing or peripheral cyanosis. No pretibial edema present. +3/5 radial and dorsalis pedis pulses palpated throughout. +5/5 strength noted in UE/LE bilaterally. NEUROLOGIC - Cranial nerves II through XII grossly intact. Question slight LEFT sided droop of the corner of the mouth. No other concerning facial asymmetry noted. FROM of the facial muscles. Sensory intact to light touch throughout. PSYCH - A&Ox3 and cooperates fully with examiner. Pt is very pleasant and interacts well with examiner. Results & Data Vital Signs (Past 12 Hours) Vital Signs Temp Pulse Pulse Resp BP BP Pulse Ox 03/18/19 18:00 66 27 H 112/56 L 98 03/18/19 17:00 67 23 142/75 H 98 03/18/19 16:00 62 6 L 139/68 98 03/18/19 15:31 71 11 L 133/53 L 99 03/18/19 15:00 75 19 106/60 99 03/18/19 14:30 71 12 113/53 L 98 03/18/19 14:29 71 12 95/53 L 98 03/18/19 14:14 74 12 106/41 L 98 03/18/19 14:07 73 9 L 98/38 L 100 03/18/19 13:55 71 22 82/46 L 97 03/18/19 13:53 71 16 80/47 L 98 03/18/19 13:00 65 19 103/68 100 03/18/19 12:46 70 19 90/56 L 96 03/18/19 12:30 70 16 103/58 L 100 03/18/19 12:19 36.6 C 68 11 L 105/63 100 03/18/19 11:35 36.1 C L 70 16 118/65 100 03/18/19 11:25 69 16 133/63 100 03/18/19 11:15 72 16 106/52 L 100 03/18/19 11:08 36.1 C L 73 16 96/52 L 97 PG Care Time/CCT Total # of Minutes Spent Total Time Spent with Patient: Total time spent is greater than 50% in coordination of care (as documented) at patient's floor/unit and/or counseling patient: Critical Care Time: Yes Total Critical Care Time: 35
[2019-03-19] MEDS ORDERED: INSULIN ASPART 100 UNITS/ML 3 ML PEN SC ONE (02:00)
[2019-03-19] MEDS: D5W AND 1/2NSS 1,000 ML IV SCH ×2 (04:16→13:03)
[2019-03-19 05:10] LABS: Basophils # (auto) 0.02 K/uL (0-0.2); Basophils % (auto) 0.3 %; Eosinophils # (auto) 0.11 K/uL (0-0.5); Eosinophils % (auto) 1.5 %; Hematocrit (blood only) 32.6 % (42-52); Hemoglobin 10.6 g/dL (14.0-18.0); Immature Granulocytes # (auto) 0.03 K/uL (0.00-0.02); Immature Granulocytes % (auto) 0.4 %; Lymphocytes # (auto) 1.11 K/uL (1.2-3.4); Mean Corpuscular Hgb Conc 32.5 g/dL (32-36); Mean Corpuscular Volume 89.8 fL (80-100); Mean Platelet Volume 9.9 fL (7.4-10.4); Monocytes % (auto) 9.5 %; Neutrophils # (auto) 5.43 K/uL (1.4-6.5); Neutrophils % (auto) 73.3 %; Platelet Count 159 K/uL (130-400); RDW Coefficient of Variation 13.1 % (11.5-14.5); RDW Standard Deviation 42.9 fL (36.4-46.3); Red Blood Count 3.63 M/uL (4.7-6.1)
[2019-03-19 05:37] LABS: BUN Creatinine Ratio 14.7 (10-20); Calcium 8.5 mg/dl (8.5-10.1); Creatinine Clr Calc Pharmacy 41.7 ml/min; Est GFR (African American) 58.6; Est GFR (Non-African American) 50.6
[2019-03-19 06:40] LABS: Estimated Average Glucose 146 mg/dl; Hemoglobin A1C 6.7 % (4.5-5.6)
[2019-03-19] MEDS: INSULIN ASPART 100 UNITS/ML 3 ML PEN SC SCH ×4 (07:48→21:05)
[2019-03-19] MEDS: CHOLECALCIFEROL 1,000 UNITS TAB PO SCH (08:04)
[2019-03-19] MEDS: SIMVASTATIN 20 MG TAB PO SCH (08:04)
[2019-03-19] MEDS: ASPIRIN 81 MG ECTAB PO SCH (08:04)
[2019-03-19] MEDS ORDERED: GLIMEPIRIDE 2 MG TAB PO SCH (09:00)
[2019-03-19] MEDS ORDERED: SITAGLIPTIN PHOSPHATE 100 MG TAB PO SCH (09:00)
--- NOTE | 2019-03-19 11:16 | Critical Care Progress Note ---
Date of Service March 19, 2019 Assessment & Plan (1) Admitted to intensive care unit: Reason Critically Ill: 78-year-old male status post LEFT-sided CEA requiring close hemodynamic monitoring status post surgical intervention. NEURO - * CAM ICU: NEGATIVE * Patient with slight LEFT-sided corner mouth droop without other concerning finding. Likely related to operative manipulation versus persistent nerves blockade. Still present this AM but speech normal. No other focal neurologic deficits of concern. Sensation intact throughout. * No other changes in mental status or focal neurological deficits status post CEA. CARDIAC/VASCULAR - * Hypertension/HLD: * Continue home Rx. * EKG: (03/05/2019) Sinus Donnie@51bpm. No ST/T-wave changes. QTc 407ms. * Monitor on telemetry. RESPIRATORY - * No h/o pulmonary disease. * Monitor pulse oximetry closely. * Supplemental O2 PRN. GI/NUTRITION - * Progress diet as tolerated. * DM Diet RENAL/LYTES - * Apparent CKD per labs. * Monitor BMP * IVF: D5W&1/2NSS@125mL/hr - * Postoperative urinary retention - responded to straight cath. ENDO - * DMII * BSGs per unit protocol. ISS --> gtt per unit policy. HEME - * Monitor H&H s/p intervention. ID - * No concerns of infection at this time. LINES/IV ACCESS - * PIVs x2 DVT PROPHYLAXIS - * Hold s/p CEA. * SCDs (2) Status post carotid endarterectomy: (3) Stenosis of left internal carotid artery: Patient admitted for a left CEA. (4) Encounter for pre-operative examination: (5) HTN (hypertension): (6) Dyslipidemia: (7) DMII (diabetes mellitus, type 2): Supervising Physician Co-Signing Physician Notes Dr. Heck was resident physician during care of patient. I separately evaluated patient for south portions of the history and the exam. I was present during the critical portion of medical decision making, and I discussed the case with the resident. I generally agree with the findings and plan. Patient stable for downgrade out of ICU Subjective Mr. Traore states he feels at his baseline this morning and is very hungry. He looks forward to discharge today and notes he is ready to go home. He denies chest pain, nausea, vomiting, diarrhea. He notes appropriate analgesic coverage for his surgical soreness. Otherwise no acute complaints or events overnight. Review of Systems Review of Systems: All systems reviewed & are unremarkable except as noted in HPI & below Physical Exam Constitutional: WD/WN, vitals as above cooperative and comfortable; no acute distress Eyes: + anicteric sclerae and EOM intact bilaterally ENMT: Mouth: no oropharynx abnormality and no muffled voice Neck: trachea midline right sided lateral anterior neck surigcal site with intact sutures and without signs of infection. Respiratory: normal respiratory effort; no respiratory distress Auscultation: lungs clear to auscultation bilaterally Cardiovascular: Rate/Rhythm: regular rate and regular rhythm Extremities: no pedal edema Gastrointestinal (Abdomen): Percussion/Palpation: abdomen soft; abdomen nontender Musculoskeletal: Head/Neck/Chest: normocephalic Neurologic: moves all extremities and awake mild left sided facial droop, otherwise no focal deficits Psychiatric: A+Ox3, euthymic affect Results & Data Vital Signs (Past 12 Hours) Vital Signs Temp Pulse Resp BP Pulse Ox 03/19/19 10:00 66 16 145/69 H 94 03/19/19 09:00 78 20 149/77 H 96 03/19/19 08:00 36.8 C 70 13 151/77 H 93 03/19/19 07:00 65 18 144/71 H 94 03/19/19 06:00 74 16 138/64 94 03/19/19 05:00 69 14 126/59 L 96 03/19/19 04:00 36.4 C L 69 14 139/64 97 03/19/19 03:00 67 12 123/60 96 03/19/19 02:00 71 16 125/64 96 03/19/19 01:00 67 13 147/68 H 97 03/19/19 00:00 67 18 148/65 H 97 PG Care Time/CCT Total # of Minutes Spent Total Time Spent with Patient: Total time spent is greater than 50% in coor dination of care (as documented) at patient's floor/unit and/or counseling patient: Resident Activity Tracking Resident Involvement: Resident Care Provided Care Provided: Adult Hospital Medicine (ICU)
--- NOTE | 2019-03-19 12:38 | Pharmacy Report ---
Pharmacy Glycemic Short Note 2 - Date of Service March 19, 2019 - Glycemic Short BSG Results (Last 24 hours): 03/18/19 03/18/19 03/18/19 12:46 16:58 20:11 Glucose POC Glucose 172 H 245 H 62 L* 03/18/19 03/18/19 03/18/19 20:12 20:14 20:32 Glucose POC Glucose 45 L* 52 L* 130 H 03/18/19 03/19/19 03/19/19 21:01 01:18 05:03 Glucose 101 H POC Glucose 97 71 03/19/19 03/19/19 07:09 11:30 Glucose POC Glucose 147 H 98 OUTPATIENT ANTIDIABETIC REGIMEN: * Januvia 100mg daily * Glimepiride 4mg daily * Metformin 500mg PO BID * A1c = 6.7% 03/19/19 ASSESSMENT: * Type 2 diabetic admitted for elective L CEA * Patient received 15 units of Lantus x 1 yesterday and 10 units of Novolog correction. Subsequently pt experienced hypoglycemia. * Fasting BSG 71 this AM w/ 15 units of Lantus on board. Will withhold further Lantus doses at this time, given current A1c and BSG pattern. * Will lessen Novolog doses w/ meals to reduce the risk of hypoglycemia * Might consider resuming metformin in near future as HANNAH resolves PLAN FOR INPATIENT GLYCEMIC CONTROL: * Hold outpatient oral diabetes medications (metformin, glimepiride, sit agliptin) * Basal insulin (decrease) * None * Bolus insulin (decrease) * NovoLog per scale ACHS or Q6hrs while NPO * Goal Range: Low 120 mg/dL - High 150 mg/dL * Correction Factor: 40 mg/dL/unit * Nutritional / Prandial insulin per carb ratio of 1 unit per 15 grams CHO consumed PLAN FOR DISCHARGE: * may resume home regimen if no contraindications
[2019-03-19] MEDS ORDERED: HydrALAZINE HCL 20 MG/ML VIAL IV ONE (13:08)
[2019-03-19] MEDS ORDERED: HydrALAZINE HCL 20 MG/ML VIAL ONE (13:09)
--- NOTE | 2019-03-19 16:08 | Surgery Progress Note ---
Date of Service March 19, 2019 Subjective March 19, 2019 Assessment & Plan (1) Status post carotid endarterectomy: Doing well Will transfer to floor If can not void will consult urology tomorrow Subjective Patient complains of not being able to void Physical Exam Neck: trachea midline Skin: + wound (dry and clean) Neurologic: grossly intact except for a slight left lip droop Psychiatric: Orientation: oriented x 3 Results & Data Vital Signs (Past 12 Hours) Vital Signs Temp Pulse Resp BP Pulse Ox 03/19/19 15:13 93 H 15 114/75 96 03/19/19 15:00 94 H 18 96 03/19/19 14:00 91 H 14 156/74 H 95 03/19/19 13:32 82 155/70 H 03/19/19 13:30 79 20 155/70 H 97 03/19/19 13:05 77 13 176/85 H 95 03/19/19 13:00 77 9 L 176/85 H 93 03/19/19 12:00 36.7 C 67 8 L 170/82 H 97 03/19/19 11:28 65 19 147/49 H 97 03/19/19 11:01 71 16 170/102 H 99 03/19/19 11:00 70 13 99 03/19/19 10:00 66 16 145/69 H 94 03/19/19 09:00 78 20 149/77 H 96 03/19/19 08:00 36.8 C 70 13 151/77 H 93 03/19/19 07:00 65 18 144/71 H 94 03/19/19 06:00 74 16 138/64 94 03/19/19 05:00 69 14 126/59 L 96
[2019-03-20] MEDS ORDERED: METFORMIN HCL 500 MG TAB PO SCH ×2 (08:00)
[2019-03-20] MEDS: SIMVASTATIN 20 MG TAB PO SCH (08:07)
[2019-03-20] MEDS: ASPIRIN 81 MG ECTAB PO SCH (08:07)
[2019-03-20] MEDS: CHOLECALCIFEROL 1,000 UNITS TAB PO SCH (08:07)
[2019-03-20] MEDS: INSULIN ASPART 100 UNITS/ML 3 ML PEN SC SCH (08:45)
--- NOTE | 2019-03-20 13:48 | Surgery Progress Note ---
Date of Service March 20, 2019 Assessment & Plan (1) Status post carotid endarterectomy: Pt doing well postop. Post op voiding difficulty resolved. OK for d/c home today. Present on Admission?: No (2) Stenosis of left internal carotid artery: Pt now s/p L CEA. Doing well. Present on Admission?: Yes Subjective 78 yo m POD #2 after uncomplicated L CEA, seen in f/u today. Pt had difficulty voiding on his own yesterday. Pt states he is voiding as normal today and ready for d/c home. Denies any other complaints. Review of Systems Review of Systems: All systems reviewed & are unremarkable except as noted in HPI & below Physical Exam Constitutional: WD/WN, vitals as above well developed and well nourished; no acute distress Pt dressed and pacing in room, anxious for d/c. Neck: trachea midline L neck incision C/D/I with dermabond. + mild local soft edema/ecchymosis. Respiratory: normal respiratory effort, lungs clear to auscultation Cardiovascular: RRR, no murmur, no edema Gastrointestinal (Abdomen): normal bowel sounds, soft, nontender, no hepatosplenomegaly Musculoskeletal: no cyanosis or clubbing, extremities motor strength 5/5 Neurologic: PERRL, EOMI, accommodation nl, no face palsy, no dysarthria moves all extremities; no focal motor deficits Speech / Cognition: normal speech Psychiatric: Orientation: alert and oriented x 3 Speech: normal rate/rhythm/volume of speech Affect: + anxious affect Cognition: recent memory grossly intact and remote memory grossly intact Insight: good insight Results & Data Vital Signs (Past 12 Hours) Vital Signs Temp Pulse Pulse Resp BP BP Pulse Ox 03/20/19 12:01 37 C 87 83 12 151/77 H 138/70 99 03/20/19 07:45 37 C 87 12 138/70 99
--- NOTE | 2019-03-20 13:50 | Discharge Summary ---
Date of Service March 20, 2019 Admission HPI Per Admitting Provider Mr Traore was seen in November it due to left internal carotid artery stenosis noted on an ultrasound. The ultrasound was initially performed due to his primary provider auscultating a left carotid bruit which prompted the order for ultrasound. The patient denies any symptoms, specifically of cerebrovascular insufficiency or amaurosis. He denies any unilateral extremity weakness, numbness or tingling, difficulty speaking or swallowing, facial droop, unilateral headaches, lightheadedness or other concerns. He denies any chest pain, shortness of breath, chest pain with activity. His CTA neck demonstrates over 90% stenosis of his left internal carotid artery. Of note, it also demonstrates a 4 x 3 mm left upper lobe lung nodule and also demonstrates some significant plaque formation in the thoracic aortic arch and a possible ulcerative plaque. Admission Exam Per Admitting Provider The patient was awake, in general, appears awake, alert, oriented, follows command, does not appear to be in distress. Heart is regular with an audible systolic bruit, reverberating up both carotids. Lungs are clear to auscultation. Patient has palpable radial pulses bilaterally. Is able to hear the bruit in both carotids, which is likely his cardiac murmur. Neurologically, patient has no focal neuro deficits. 5/5 strength in both upper and lower extremities. Cranial nerves 2 through 12 intact Principal Diagnosis 1. s/p L CEA 2. L ICA stenosis Discharge Exam Constitutional WD/WN, vitals as above well developed and well nourished; no acute distress Neck trachea midline Respiratory normal respiratory effort, lungs clear to auscultation Cardiovascular RRR, no murmur, no edema Gastrointestinal (Abdomen) normal bowel sounds, soft, nontender, no hepatosplenomegaly Musculoskeletal no cyanosis or clubbing, extremities motor strength 5/5 Neurologic PERRL, EOMI, accommodation nl, no face palsy, no dysarthria moves all extremities; no focal motor deficits Speech / Cognition: normal speech Psychiatric Orientation: alert and oriented x 3 Speech: normal rate/rhythm/volume of speech Affect: + anxious affect Cognition: recent memory grossly intact and remote memory grossly intact Insight: good insight Discharge Data Allergies Allergy/AdvReac Type Severity Reaction Status Date / Time No Known Allergies Allergy Verified 03/18/19 06:06 Consultations 03/18/19 07:13 Consult Account Planner Routine Procedures Performed Operation Date: 03/18/19 07:30 Actual Procedures p Left Carotid Endarterectomy(Left) - Panchito Cornejo MD Ordered Studies 03/18/19 07:16 US guide vascular access Stat Hospital Course (1) Status post carotid endarterectomy: Pt doing well postop. Post op voiding difficulty resolved. OK for d/c home today. (2) Stenosis of left internal carotid artery: Pt now s/p L CEA. Doing well. Total Time Total Time Spent Total Time Spent (In Minutes): 15 minutes Total Time Includes: Examination of the Patient and Medication Reconciliation Discharge Plan Discharge Items Patient Disposition: Home - Self-Care Reason For Visit: Left Internal Carotid Artery Stenosis Discharge Diagnosis: 1. s/p Left Carotid Endarterectomy 2. Left Carotid Stenosis Condition: Good Discharge Goals: Prevent disease and Therapeutic intervention Activity: Per 'Additional Instructions' section Lifting Comment: no more than 10 lbs x 1 week Bathing: No limitations Sexual Activity: When tolerated Exercise/Sports: Gradually increase as tolerated Driving/Machine Use Comment: no driving x 1 week Non-emergency contact: Primary Care Provider and Surgeon Call non-emergency contact if: you have any medication questions, your pain is not controlled, your pain is concerning for you, your temperature is above 101, your wound has increased redness, your wound has increased drainage and your wound pain has increased Follow-up/Referrals: Tony Mejia MD [Primary Care Provider] - Rut Sanchez PA-C [Physician It Field Technician] - (Needs follow up appt with Dr Cornejo or Rut Sanchez PA-C, in 2 weeks in office. ) Diet: Carb Consistent or DM2 and Heart Healthy Addtl Provider Instructions: SPECIAL CARE INSTRUCTIONS: Medications: * Continue to take Aspirin as directed. Incision Care: * You may shower, but do not rub incision. You may let the warm soapy water run over it. Be sure to dry the incision well after bathing. * Do not shave directly over the incision until it is healed. * DO NOT IMMERSE THE INCISION IN A TUB/POOL/etc. UNTIL HEALED. Restrictions: * Do not drive for at least one week or if you are still taking any narcotic pain medication. * Do not lift anything heavier than a gallon of milk for one week after going home. Possible Complications: * Numbness - It is normal to have some numbness around the incision. Numbness can extend beyond the incision to areas of the neck, ear and face. The numbness is due to bruising of nerves during the surgery and will gradually improve over a period of months. * Hoarseness/Difficulty Speaking and Swallowing - The bruising of nerves in the neck can also cause a hoarse voice, difficulty speaking or swallowing. This may improve over time, HOWEVER, if it continues for more than a few days please contact our office ([phone]). * Excessive Swelling - There will be some swelling immediately after surgery which usually resolves within one week. If you notice that the swelling is getting worse, notify your surgeon ([phone]). * Drainage/Bleeding - If there is any drainage or bleeding, it should be a very small amount (less than a teaspoon per day). If you have excessive bleeding or drainage from the incision, call your surgeon ([phone]) right away. ACTIVATION OF EMERGENCY MEDICAL SYSTEM: Call 911, immediately, if you experience any of the following: Warning Signs and Symptoms of Stroke: * Sudden numbness or weakness of the face, arm or leg, especially on one side of the body * Sudden confusion, trouble speaking or understanding * Sudden trouble seeing in one or both eyes * Sudden trouble walking, dizziness, loss of balance or coordination * Sudden severe headache with no cause Do not delay calling 911 if you experience any warning signs or symptoms of a stroke. Delay in seeking medical attention may affect what treatments can be given to you. Risk Factors for Stroke: You can reduce your chances of stroke by working with your medical provider to adopt a healthy lifestyle. Some specific ways to lower your chance of stroke are: * If you are a smoker, now is the time to stop smoking cigarettes * If you are diabetic, improve the control of your blood sugars * Avoid excessive amounts of alcohol * Control high blood pressure * Lose weight if you are overweight * Be sure to lead an active lifestyle * Eat a healthy diet low in salt, cholesterol and fat You should know about other risk factors for stroke that you are unable to control. These include: * Age 55 years or older * Male gender * Certain racial groups: , or / * Family History of Stroke, Mini stroke or Heart Attack * Sickle Cell Disease You will be receiving a call from the Vascular Surgery Nurse after you are discharged. FOLLOW UP VISIT: It is important for you to keep your follow up appointments with your medical provider. Keep any scheduled doctor appointments. Prescriptions: New oxycodone-acetaminophen [Percocet] 5-325 mg Tablet 1 tab PO Q4H PRN (Reason: Pain) Qty: 30 RF: 0 Continued metformin 500 mg tablet See Rx Instructions .ROUTE .COMPLEX Qty: 90 RF: 2 simvastatin 20 mg Tablet 20 mg PO QAM RF: 0 glimepiride 4 mg Tablet 4 mg PO QAM RF: 0 Januvia 100 mg Tablet 100 mg PO QAM RF: 0 cholecalciferol (vitamin D3) [Vitamin D3] 1,000 unit Capsule 1,000 unit PO QAM RF: 0 aspirin [Aspirin Low Dose] 81 mg Tablet,Delayed Release (Dr/Ec) 81 mg PO QAM RF: 0 Stand-Alone Forms: [facility], Opioid Pain Management Hank/Other Patient Handouts: Endarterectomy Carotid Home Discharge Orders: Discharge Order (Routine); Ordered 03/20/19 Ordered By: Rut Sanchez Admission Data Admit Date/Time: 03/18/19 07:13 Attending Provider: Panchito Cornejo Admit Provider: Panchito Cornejo Primary Care Provider: Tony Mejia Other Providers: Eric Aldridge Service: Surgical Services Other Interventions: Discharge Summary Assessment (RN) Last Done: 03/20/19 12:01 DC Date/Time DO NOT enter until pt leaves facility: 03/20/19 12:36
--- NOTE | 2019-03-21 09:04 | Communication Note ---
Date of Service: March 21, 2019 This patient does have chronic kidney disease level 3.
== END 2019-03-20 12:36 | disposition home or self-care (01) | DRG 39 ==
LOC: ASU 05:35 → 1E 07:13 → 3W 03-19 16:00